=== PATIENT | female | born 1945 | race Caucasian/White ===

== ENCOUNTER 2022-05-15 09:15 | Day surgery (SDC) | payer BC ==
[2022-05-14 16:53] LABS: BASOPHILS % (AUTO) 0.2 % (0-1); EOSINOPHILS # (AUTO) 0.2 X10'3 (0-0.9); EOSINOPHILS % (AUTO) 1.9 % (0-6); HEMATOCRIT 41.1 % (35.0-45.0); HEMOGLOBIN 13.3 g/dl (12.0-16.0); LYMPHOCYTES # (AUTO) 2.1 X10'3 (1.1-4.8); LYMPHOCYTES % (AUTO) 22.9 % (21-51); MEAN CORPUSCULAR HEMOGLOBIN 29.1 PG (27.0-31.0); MEAN CORPUSCULAR HGB CONC 32.4 g/dL (33.0-36.5); MEAN CORPUSCULAR VOLUME 89.7 FL (78-98); MONOCYTES # (AUTO) 0.5 X10'3 (0-0.9); MONOCYTES % (AUTO) 5.3 % (2-12); NEUTROPHILS # (AUTO) 6.4 X10'3 (1.8-7.7); NEUTROPHILS % (AUTO) 69.7 % (42-75); PLATELET COUNT 289 X10'3 (140-440); RED BLOOD COUNT 4.58 X10'6 (4.20-5.60); WHITE BLOOD COUNT 9.1 X10'3 (4.5-11.0)
[2022-05-14 17:02] LABS: ALBUMIN 3.3 G/DL (3.4-5.0); ANION GAP 12 (8-16); BLOOD UREA NITROGEN 37 MG/DL (7-18); BUN/CREATININE RATIO 48.1 (6.6-38.0); CALCIUM 9.5 MG/DL (8.5-10.1); CHLORIDE 97 MMOL/L (99-107); CREATININE 0.77 MG/DL (0.40-0.90); GLUCOSE 129 MG/DL (70-104); POTASSIUM 3.9 MMOL/L (3.5-5.1); SODIUM 132 MMOL/L (135-145); TOTAL CARBON DIOXIDE 23.2 MMOL/L (24-32); eGFR 73 ML/MIN
[~2022-05-15] VITALS: Ht 152.4 cm; Wt 64.6 kg
[2022-05-15] VITALS (11 sets, daily range): BP systolic 99–118; BP diastolic 53–75
[~2022-05-15 09:15] MED LIST: ASPI-1 PO; BUSP10TA11 PO; CARV3.122 PO; GABA800T11 PO; GUAN2TAB19 PO; HYDR-3927 PO; LAMO200T2 PO; METH-360 PO; MORP-92 PO; MORP15TA PO; ONQPUMP ADDCANAL; PANT-47 PO; QUET150T2 PO; SODI1TAB2 PO; VENL75TA4 PO
[2022-05-15] MEDS ORDERED: normal saline 1000ml 1,000 ML IV SCH ×2 (09:40→14:50)
[2022-05-15] MEDS ORDERED: ceFAZolin inj. 2,000 MG in dextrose 5%-water 100 ML IV ONE (09:40)
[2022-05-15] MEDS ORDERED: CEPH500C2 PO (10:26)
[2022-05-15 10:31] LABS: APTT 27 SECONDS (22-32)
[2022-05-15] MEDS ORDERED: LIDOCAINE 2%/EPI 1:100,000 inj. Multi-dose 20 ML VIAL ONE (11:59)
[2022-05-15] MEDS ORDERED: midazolam 1 mg/ML 2ml injection ONE ×2 (11:59→13:33)
[2022-05-15] MEDS ORDERED: fentaNYL/PF 50MCG/1 ML 2ML syringe ONE ×2 (11:59→13:03)
[2022-05-15] MEDS ORDERED: ceFAZolin 1000mg inj ONE (11:59)
[2022-05-15] MEDS ORDERED: ondansetron/PF 4mg/2ml inj IV PRN (14:50)
[2022-05-15] MEDS ORDERED: HYDROcodone/acetaminophen 10/325mg tab PO PRN (14:55)
[2022-05-15] MEDS ORDERED: OXAZEpam 15mg capsule PO PRN (14:55)
[2022-05-15] MEDS ORDERED: nitroGLYCERIN 0.4mg SUBLingual tab SL PRN (14:55)
[2022-05-15] MEDS ORDERED: HYDROcodone/acetaminophen 5mg/325mg tablet PO PRN (14:55)
[2022-05-15] MEDS ORDERED: proCHLORperazine 10 MG/2 ml inj IV PRN (14:55)
[2022-05-15] MEDS ORDERED: vancomycin/NS 1 GM ADD-VANTAGE 250 ML X 1 DOSE IV ONE (15:00)
== END 2022-05-15 20:00 | disposition home or self-care (01) ==
LOC: SSTAY O 09:15
PROVIDERS: ATTEND Internal Medicine Cardiovascular Disease
DX: I49.5 Sick sinus syndrome (principal); I48.0 Paroxysmal atrial fibrillation; D64.9 Anemia, unspecified; F31.9 Bipolar disorder, unspecified; G47.30 Sleep apnea, unspecified; M13.88 Other specified arthritis, other site; G89.29 Other chronic pain; Z86.14 Personal history of Methicillin resistant Staphylococcus aureus infection; F40.240 Claustrophobia; F11.20 Opioid dependence, uncomplicated; Z96.642 Presence of left artificial hip joint; Z72.89 Other problems related to lifestyle; Z82.49 Family history of ischemic heart disease and other diseases of the circulatory system; Z81.1 Family history of alcohol abuse and dependence
CPT/HCPCS: 33208; 33286; 36415; 71046; 80048; 85025; 85610; 85730; 93005; 99152; 99153; C1785; C1894; C1898; J0690; J2250; J3010; J3370; J7030; A4615

== ENCOUNTER 2022-06-05 13:27 | Emergency (ER) | payer BC ==
[~2022-06-05] VITALS: Ht 152.4 cm; Wt 62.7 kg
[~2022-06-05 13:27] MED LIST changes: -ASPI-1 PO; +CEPH500C2 PO; -METH-360 PO; -MORP15TA PO; -ONQPUMP ADDCANAL; -QUET150T2 PO
[2022-06-05] MEDS ORDERED: morphine 4 MG/ML inj SYRINge IV ONE (13:50)
[2022-06-05 14:59] VITALS: BP 121/78
[2022-06-05] MEDS ORDERED: morphine IR (immed. release) 30mg tablet PO STA ×2 (15:01→17:34)
[2022-06-05] MEDS ORDERED: bacitracin 15gm ointment TP ONE (15:25)
--- NOTE | 2022-06-05 17:01 | NUR ---
Called [facility] for radiology report.
[2022-06-05] MEDS ORDERED: LIDOcaine 5% patch TP STA (17:34)
[2022-06-05] MEDS ORDERED: LIDO700A32 TOP ×2 (17:39)
--- NOTE | 2022-06-05 18:22 | NUR ---
Splint applied to patient per provider order. Patient educated on proper use.
--- NOTE | 2022-06-05 18:22 | NUR ---
Wound dressing applied to patient per provider order.
[2022-06-08] MEDS ORDERED: VENL37.589 PO (05:27)
[2022-06-08] MEDS ORDERED: GUAN2TAB PO (05:27)
[2022-06-08] MEDS ORDERED: LAMO200T10 PO (05:27)
[2022-06-08] MEDS ORDERED: MORP15TA PO (05:27)
[2022-06-08] MEDS ORDERED: PANT40TA54 PO (05:27)
[2022-06-08] MEDS ORDERED: MIRA25TA PO (05:27)
[2022-06-08] MEDS ORDERED: METH-798 PO (05:27)
[2022-06-08] MEDS ORDERED: ROSU10TA28 PO (05:27)
== END 2022-06-05 18:22 | disposition home or self-care (01) ==
LOC: ER 13:28
DX: S01.111A Laceration without foreign body of right eyelid and periocular area, initial encounter (principal); S51.811A Laceration without foreign body of right forearm, initial encounter; R07.81 Pleurodynia; F31.9 Bipolar disorder, unspecified; G89.29 Other chronic pain; Z90.49 Acquired absence of other specified parts of digestive tract; Z88.5 Allergy status to narcotic agent; Z79.899 Other long term (current) drug therapy; Z79.1 Long term (current) use of non-steroidal anti-inflammatories (NSAID); Z79.2 Long term (current) use of antibiotics; W18.39XA Other fall on same level, initial encounter; Y93.89 Activity, other specified; Y92.89 Other specified places as the place of occurrence of the external cause; Y99.8 Other external cause status
CPT/HCPCS: 70450; 71100; 72125; 73030; 73080; 99284; A4565; A6258; A6449